=== PATIENT | male | born 1970 | race Caucasian/White ===

== ENCOUNTER 2021-12-17 12:13 | Inpatient (IN) | payer MEDICAID ==
[~2021-12-17] VITALS: Ht 153.7 cm; Wt 72.6 kg
--- NOTE | 2021-12-17 12:13 | NUR ---
PT BIB SELF C/O L RING FINGER LAC "WOOD FELL ON MY FINGER" PT IS AAOX4 CITIZEN OF [place] SPEAKING ONLY, NOT IN RESPIRATORY DISTRESS, V/S STABLE, KEPT RESTED AND COMFORTABLE. WILL CONTINUE TO MONITOR.
--- NOTE | 2021-12-17 12:37 | NUR ---
SEEN AND EXAMINED BY .
--- NOTE | 2021-12-17 12:41 | NUR ---
MEJIA STAFFORD AT BEDSIDE FOR WOUND CLEANING.
--- NOTE | 2021-12-17 13:33 | NUR ---
DR. THAO SPEAKING WITH DR. BURGESS.
--- NOTE | 2021-12-17 13:38 | NUR ---
CALLED ORTHO DR. CRONIN SPEAKING WITH DR. BURGESS.
--- NOTE | 2021-12-17 13:40 | NUR ---
MOVE SHEET SUBMITTED AND CALLED FOR MS BED.
[2021-12-17] MEDS ORDERED: MORPHINE SULFATE INJ 4 MG/ML DISP.SYRIN ONE (13:47)
[2021-12-17] MEDS ORDERED: TDAP [DIPH/PERTUSSIS/TET] 0.5 ML VIAL IM ONE ×2 (13:48→14:00)
[2021-12-17 14:00] LABS: BASOPHILS # (AUTO) 0.1 K/uL (0.0-0.2); BASOPHILS % (AUTO) 0.6 % (0.0-2.0); EOSINOPHILS % (AUTO) 0.6 % (0.0-6.0); HEMATOCRIT 42 % (39-51); HEMOGLOBIN 14.3 g/dL (13.5-17.5); LYMPHOCYTES # (AUTO) 1.9 K/uL (0.8-4.8); LYMPHOCYTES % (AUTO) 22.2 % (20.0-44.0); MEAN CORPUSCULAR HGB CONC 34 g/dl (31.0-36.0); MEAN CORPUSCULAR VOLUME 87 fL (80-96); MONOCYTES # (AUTO) 0.5 K/uL (0.1-1.30); MONOCYTES % (AUTO) 6.2 % (2.0-12.0); NEUTROPHILS # (AUTO) 6.1 K/uL (1.8-8.9); NEUTROPHILS % (AUTO) 70.4 % (43.0-81.0); PLATELET COUNT (AUTO) 271 K/uL (150-450); RED BLOOD CELL COUNT(AUTO) 4.79 MIL/uL (4.5-6.0); WHITE BLOOD COUNT (AUTO) 8.7 K/uL (4.3-11.0)
[2021-12-17] MEDS ORDERED: MORPHINE SULFATE INJ 2 MG/ML DISP.SYRIN IV ONE (14:00)
[2021-12-17] MEDS ORDERED: CEFAZOLIN 1 GM in IV D5W 50 ML IV ONE (14:00)
--- NOTE | 2021-12-17 14:01 | NUR ---
AT BEDSIDE FOR EVAL.
[2021-12-17 14:12] LABS: CALCIUM, SERUM 8.7 mg/dL (8.5-10.1); POTASSIUM 3.7 mmol/L (3.5-5.1)
--- NOTE | 2021-12-17 14:38 | NUR ---
DR. AQUINO SPEAKING WITH DR. BURGESS.
--- NOTE | 2021-12-17 15:29 | NUR ---
CALLED [facility] FOR REPORT RN ON BREAK WILL CALL BACK IN 15MINS.
[2021-12-17] MEDS ORDERED: MORPHINE SULFATE INJ 2 MG/ML DISP.SYRIN IV PRN (15:30)
[2021-12-17] MEDS ORDERED: MAG HYDROX/AL HYDROX/SIMETH 30 ML UDC PO PRN ×2 (15:30→15:45)
[2021-12-17] MEDS ORDERED: MAGNESIUM HYDROXIDE 30 ML UDC PO PRN ×2 (15:30→15:45)
[2021-12-17] MEDS ORDERED: HYDROCODONE/APAP 5/325MG TABLET PO PRN (15:30)
[2021-12-17] MEDS ORDERED: ZOLPIDEM TARTRATE 5 MG TABLET PO PRN ×3 (15:30→19:00)
[2021-12-17] MEDS ORDERED: ONDANSETRON HCL/PF 4 MG/2 ML VIAL IVP PRN ×2 (15:30→15:45)
[2021-12-17] MEDS ORDERED: ACETAMINOPHEN 325 MG TABLET PO PRN ×2 (15:30→15:45)
[2021-12-17] MEDS ORDERED: Z GUARD REMEDY 4 OZ OINT TP PRN ×2 (15:30→15:45)
--- NOTE | 2021-12-17 15:30 | NUR ---
REPORT GIVEN TO DAGO VAZ FOR SURGERY.
--- NOTE | 2021-12-17 15:38 | NUR ---
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
[2021-12-17] MEDS ORDERED: ANESTHESIA TRAY IN PYXIS 1 EA TRAY MC ONE (15:54)
[2021-12-17] MEDS ORDERED: BUPIVACAINE 0.25% 75 MG/30 ML VIAL ONE (15:55)
[2021-12-17] MEDS ORDERED: FENTANYL PF 250MCG/5ML AMPUL ONE (15:57)
[2021-12-17] MEDS ORDERED: MIDAZOLAM HCL 2 MG/2ML VIAL ONE (15:57)
[2021-12-17] MEDS ORDERED: FAMOTIDINE/PF INJ 20 MG/2 ML VIAL IV ONE (15:58)
[2021-12-17] MEDS ORDERED: HYDROMORPHONE INJ 2 MG/ML DISP.SYRIN ONE (15:59)
[2021-12-17 18:50] VITALS: BP 122/62
--- NOTE | 2021-12-17 18:50 | NUR ---
RN NOTES RECEIVED PATIENT FROM RECOVERY ROOM. ASLEEP, EASILY AWAKEN BY VERBAL AND TACTILE STIMULI. ON O2 VIA NC AT 2LPM, TOLERATING WELL, NO SOB NOTED, IV ACCESS ON RAC G#22, PATENT AND FLUSHES WELL, DRY AND INTACT DRESSING ON LEFT HAND NOTED WITH ICE PACK ON, ELEVATED LUE ORDERED. SAFETY PRECAUTIONS IN PLACE BED ON LOWEST LOCKED POSITION. SIDE RAILS UP X 2, CALL LIGHT WITHIN EASY REACH. WILL ENDORSE TO ONCOMING SHIFT FOR ELEANOR.
[2021-12-17] MEDS ORDERED: SENNOSIDES 8.6 MG TABLET PO PRN (19:00)
[2021-12-17] MEDS ORDERED: BISACODYL SUPP (10 MG) 10 MG/SUPP.RECT SUPP.RECT RC PRN (19:00)
[2021-12-17] MEDS ORDERED: DOCUSATE SODIUM 250 MG CAPSULE PO PRN (19:00)
--- NOTE | 2021-12-17 19:00 | NUR ---
MS PHOTOGRAPHIC SPOTTER NOTES RECEIVED ON BED S/P INCISION AND DRAINAGE LEFT HAND WITH PINNING ON 4TH DIGIT,DRESSING INTACT AND DRY,ABLE TO AMBULATE TO THE BATHROOM WITH STEADY GAIT.PAIN TOLERABLE AT THE MOMENT SCALE OF 2/10,LEFT HAND ELEVATED ON PILLOWS,ICE PACK IN PLACE.WITH SALINE LOCK LEFT AC INTACT AND PATENT.CALL LIGHT IN REACH,NEEDS ANTICIPATED.
[2021-12-17 20:00] VITALS: BP 123/69
--- NOTE | 2021-12-17 20:00 | NUR ---
MS RN NOTES FAMILY MEMBERS AT BEDSIDE.
[2021-12-17] MEDS: ANCEF 1 GM/50 ML D5W IV SCH ×2 (20:31)
[2021-12-17] MEDS ORDERED: CEFAZOLIN 1 GM in IV D5W 50 ML IV SCH ×4 (21:00)
--- NOTE | 2021-12-17 21:00 | NUR ---
MS RN NOTES STARTED ON ANCEF 1 GM IV ORDERED.
[2021-12-18] MEDS: MORPHINE SULFATE INJ 2 MG/ML DISP.SYRIN IV PRN ×3 (02:27→18:13)
--- NOTE | 2021-12-18 02:27 | NUR ---
MS RN NOTES C/O PAIN ON LEFT HAND 8/10 ON PAIN SCALE,MORPHINE 2MG IV GIVEN ORDERED FOR SEVERE PAIN.ICE PACK IN PLACE,CONTINUE ELEVATED ON PILLOWS.
[2021-12-18] MEDS: ANCEF 1 GM/50 ML D5W IV SCH ×4 (05:11→12:09)
--- NOTE | 2021-12-18 06:34 | NUR ---
MS RN NOTES ON BED AWAKE,OFFERED ANOTHER DOSE FOR PAIN MANAGEMENT BUT REFUSED.HE SAID HE FEELS BETTER AND PAIN IMPROVED.DRESSING TO LEFT HAND INTACT AND DRY,ELEVATED ON PILLOWS.SALINE LOCK TO RIGHT AC INTACT AND PATENT.CALL LIGHT IN REACH,NEEDS ATTENDED.
--- NOTE | 2021-12-18 07:30 | NUR ---
RN NOTES PATIENT IN BED RESTING, AWAKE AND VERBALLY RESPONSIVE, NOT IN ACUTE DISTRESS. COMPLAINT OF LEFT HAND PAIN, RATED 9/10, OFFERED PAIN MEDICATION AND PATIENT STATED "A LITTLE BIT LATER"; OFFERED ICE COMPRESS BUT DECLINED AT THIS TIME. ELEVATED LEFT HAND W/ PILLOWS FOR COMFORT. DRESSING C/D/I. SAFETY MEASURES IN PLACE. WILL CONTINUE TO MONITOR.
[2021-12-18 08:24] VITALS: BP 99/55
--- NOTE | 2021-12-18 09:00 | NUR ---
RN NOTES PATIENT SEEN BY DR. AQUINO TODAY.
[2021-12-18] MEDS ORDERED: *INSULIN REGULAR(HUMULIN R)HUM 100 UNIT/ML VIAL SQ PRN (10:00)
[2021-12-18] MEDS ORDERED: DEXTROSE 50%-WATER 50 ML DISP.SYRIN IV PRN (10:00)
[2021-12-18 10:19] LABS: BASOPHILS # (AUTO) 0.1 K/uL (0.0-0.2); BASOPHILS % (AUTO) 0.5 % (0.0-2.0); EOSINOPHILS % (AUTO) 0.2 % (0.0-6.0); HEMATOCRIT 38 % (39-51); HEMOGLOBIN 12.9 g/dL (13.5-17.5); LYMPHOCYTES # (AUTO) 0.8 K/uL (0.8-4.8); LYMPHOCYTES % (AUTO) 4.1 % (20.0-44.0); MEAN CORPUSCULAR HGB CONC 34 g/dl (31.0-36.0); MEAN CORPUSCULAR VOLUME 89 fL (80-96); MONOCYTES % (AUTO) 5.2 % (2.0-12.0); PLATELET COUNT (AUTO) 206 K/uL (150-450); RED BLOOD CELL COUNT(AUTO) 4.32 MIL/uL (4.5-6.0); WHITE BLOOD COUNT (AUTO) 18.9 K/uL (4.3-11.0)
[2021-12-18 10:45] LABS: CALCIUM, SERUM 7.9 mg/dL (8.5-10.1); CREATININE 1.4 mg/dL (0.6-1.3); MAGNESIUM 1.8 mg/dL (1.8-2.4); PHOSPHORUS 4.2 mg/dL (2.5-4.9); POTASSIUM 3.8 mmol/L (3.5-5.1)
[2021-12-18] MEDS: HYDROCODONE/APAP 5/325MG TABLET PO PRN (11:26)
[2021-12-18] MEDS: BLOOD SUGAR DIAGNOSTIC 1 EACH STRIP IN SCH ×3 (11:36→21:16)
[2021-12-18] MEDS: INSULIN REGULAR, HUMAN 100 UNIT/ML 3 ML VIAL SQ PRN (11:53)
--- NOTE | 2021-12-18 13:50 | NUR ---
RN NOTES FAMILY AT BEDSIDE.
--- NOTE | 2021-12-18 13:50 | NUR ---
RN NOTES NO COMPLAINT OF PAIN AT THE MOMENT; CURRENTLY DOZING INTERMITTENTLY.
[2021-12-18] MEDS ORDERED: SUCCINYLCHOLINE CHLORIDE 20 MG/ML VIAL IV ONE (14:47)
[2021-12-18 16:16] VITALS: BP 112/64
--- NOTE | 2021-12-18 19:04 | NUR ---
RN NOTES RESTING IN BED, AWAKE AND VERBALLY RESPONSIVE. PAIN MGT APPROPRIATE. NO ACUTE DISTRESS NOTED. SAFETY MEASURES MAINTAINED. DUE MEDS GIVEN TODAY. WILL ENDORSE TO VOIP ENGINEER RN FOR ELEANOR.
--- NOTE | 2021-12-18 19:34 | NUR ---
RN OPENING NOTES RECEIVED PT IN BED, AWAKE, FAMILY AT BEDSIDE. AOx4, [place] SPEAKING AND ABLE TO MAKE NEEDS KNOWN. ON RA AND TOLERATING WELL. NO SOB NOTED. NO S/SX OF RESPIRATORY DISTRESS NOTED. IV ACCESS IN RAC #18. IV IS INTACT, PATENT, AND FLUSHING WELL. NO COMPLAINTS OF PAIN AT THIS TIME. SAFETY PRECAUTIONS IN PLACE: BED IN LOWEST, LOCKED POSITION, SIDERAILS UPx2, AND BRAKES ON. CALL LIGHT AND TABLE WITHIN REACH. WILL CONTINUE TO MONITOR.
--- NOTE | 2021-12-18 19:36 | NUR ---
RN OPENING NOTES RECEIVED PT IN BED, ASLEEP, AWAKENS TO VERBAL STIMULI. AOx2-3, ABLE TO MAKE NEEDS KNOWN. ON RA AND TOLERATING WELL. NO SOB NOTED. NO S/SX OF RESPIRATORY DISTRESS NOTED. IV ACCESS IN RAC #20. IV IS INTACT, PATENT, AND FLUSHING WELL. SAFETY PRECAUTIONS IN PLACE: BED IN LOWEST, LOCKED POSITION, SIDERAILS UPx2, AND BRAKES ON. CALL LIGHT AND TABLE WITHIN REACH. WILL CONTINUE TO MONITOR. Addendum: 12/19/21 at 0645 by LISA GAONA RN WRONG PATIENT. PLEASE DISREGARD.
[2021-12-18 20:00] VITALS: BP 99/58
[2021-12-19] MEDS: MORPHINE SULFATE INJ 2 MG/ML DISP.SYRIN IV PRN (01:11)
--- NOTE | 2021-12-19 01:11 | NUR ---
ADMINISTERED MORPHINE FOR PAIN PER MD ORDER. VS WNL. WILL CONTINUE TO MONITOR.
[2021-12-19] MEDS: BLOOD SUGAR DIAGNOSTIC 1 EACH STRIP IN SCH ×2 (06:31→13:55)
[2021-12-19] MEDS: INSULIN REGULAR, HUMAN 100 UNIT/ML 3 ML VIAL SQ PRN ×2 (06:32→14:18)
--- NOTE | 2021-12-19 06:46 | NUR ---
RN CLOSING NOTES PT IN BED, AWAKE, USING SMARTPHONE. AOx4, [place] SPEAKING AND ABLE TO MAKE NEEDS KNOWN. ON RA AND TOLERATING WELL. NO SOB NOTED. NO S/SX OF RESPIRATORY DISTRESS NOTED. IV ACCESS IN RAC #18. IV IS INTACT, PATENT, AND FLUSHING WELL. TREATED PAIN ONCE DURING SHIFT. ALL NEEDS MET. PT KEPT CLEAN AND DRY. SAFETY PRECAUTIONS IN PLACE: BED IN LOWEST, LOCKED POSITION, SIDERAILS UPx2, AND BRAKES ON. CALL LIGHT AND TABLE WITHIN REACH. WILL ENDORSE TO ONCOMING SHIFT FOR ELEANOR.
[2021-12-19 08:00] VITALS: BP_SYST 106; BP_SYST 124; BP_DIAS 65; BP_DIAS 77
[2021-12-19] MEDS: HYDROCODONE/APAP 5/325MG TABLET PO PRN (09:47)
[2021-12-19 16:01] VITALS: BP 105/59
--- NOTE | 2021-12-19 16:20 | NUR ---
received pt. in am alert and oriented x4.elevating hand.no drainage on hand.pin intact.med. x1 with norco.iv removed.papers signed.pt. aware to make appt. with surgeon,and symptoms to report.belonging sheet signed,escorted to lobby by rn.all needed info given to family.
== END 2021-12-19 17:30 | disposition home or self-care (01) | DRG 316 ==
LOC: ER 13:01 → MED 16:13
PROVIDERS: ADMIT Internal Medicine; ATTEND Internal Medicine
PROC: 0PSV04Z Reposition Left Finger Phalanx with Internal Fixation Device, Open Approach (ICD-10-PCS; principal; 2021-12-17)
DX: S62.615B Displaced fracture of proximal phalanx of left ring finger, initial encounter for open fracture (principal); N17.0 Acute kidney failure with tubular necrosis; E87.1 Hypo-osmolality and hyponatremia; Z20.822 Contact with and (suspected) exposure to COVID-19; W20.8XXA Other cause of strike by thrown, projected or falling object, initial encounter; E86.1 Hypovolemia; Y92.69 Other specified industrial and construction area as the place of occurrence of the external cause; R73.9 Hyperglycemia, unspecified
CPT/HCPCS: 36415; 71045-TC; 73130-TC; 80048-TC; 82962-TC; 83735-TC; 84100-TC; 85025-TC; 85730-TC; 87081-TC; 90715; A4217; A4565; A6253; A6402; A6403; G0378; J0330; J0690; J1170; J1815; J2250; J2270; J2405; J2704; J2765; J3010; J3490; J7030; J7060